=== PATIENT | female | born 1990 | race Caucasian/White ===

== ENCOUNTER 2025-05-07 22:36 | Inpatient (IN) | payer MEDICAID, OTHER, SELFPAY ==
[2025-05-07 23:22] VITALS: BMI 34.7
[2025-05-07 23:24] VITALS: BP 110/56; PULSE 86; RESP 18; TEMP 36.5; O2SAT 97
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
[2025-05-08 07:00] VITALS: BMI 34.6
[2025-05-08 07:34] VITALS: BP 131/90; PULSE 75; RESP 18; TEMP 36.4; O2SAT 100
--- NOTE | 2025-05-08 07:59 | HO.PM.IMCN ---
History of Present Illness Data of Consult Service Date: 05/08/25 Requesting physician: Jelena Beltre Primary Care Provider: Unknown Physician HPI Reason for consult: New admission H&P A 35-year-old [place]ese and Turkish speaking female who was admitted from [facility] due to increasing agitation and violent behavior. The hospitalist service was asked to evaluate the patient for a new admission H&P. Patient was calm and cooperative throughout evaluation. She reports a history of bronchitis but does not use any inhalers, she also reports prediabetes and was previously taking her friend's metformin. 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 Review of Systems Review of Systems: Yes all other systems are reviewed and are negative Constitutional: Constitutional: Denies fever(s) Cardiovascular: Cardiovascular: Denies chest pain and Denies dyspnea Respiratory: Respiratory: Denies cough and Denies dyspnea Gastrointestinal: Gastrointestinal: Denies abdominal pain [facility] Social History Household Members: Other Household Members Other:: 3 male roomates Housing: Apartment Patient Tobacco Use Status: Never used Tobacco Advance Directives: No Advance Directives Information Provided: No Recently lost weight without trying: No Patient : No : No Poor oral hygiene: No Meds Allergies Allergy/AdvReac Type Severity Reaction Status Date / Time No Known Allergies Allergy Verified 05/07/25 23:16 Active Medications: Current Medications Acetaminophen (Acetaminophen 325 Mg Tablet) 650 mg PO Q6H PRN PRN Reason: Headache/Pain, Scale 1-10 Last Admin: 05/08/25 04:57 Dose: 650 mg Al Hydroxide/Mg Hydroxide (Magnesium Hydrox/Alum Hydrox 30 Ml Oral.Susp) 30 ml PO Q6H PRN PRN Reason: Heartburn/Nausea Hydroxyzine HCl (Hydroxyzine Hcl 25 Mg Tablet) 25 mg PO Q6H PRN PRN Reason: mild anxiety Magnesium Hydroxide (Milk Of Magnesia 30 Ml Oral.Susp) 30 ml PO DAILY PRN PRN Reason: Constipation Nicotine Polacrilex (Nicotine Polacrilex 2 Mg Gum) 4 mg BUCCAL Q2H PRN PRN Reason: Nicotine Cravings Trazodone HCl (Trazodone Hcl 50 Mg Tablet) 50 mg PO BEDTIME MRX1 PRN PRN Reason: Insomnia Home Medications ?Medication ?Instructions ?Recorded ?Confirmed ?Last Taken ?Type alprazolam 0.25 mg tablet 0.25 mg PO BEDTIME PRN Anxiety 05/08/25 05/08/25 Unknown History paliperidone palmitate 117 mg/0.75 117 mg IM QMONTH 05/08/25 05/08/25 Unknown History mL intramuscular syringe (Invega Sustenna) Physical Exam Vital Signs and Narrative: Vital Signs: Last Vital Signs Temp 97.5 F 05/08/25 07:34 Pulse 75 05/08/25 07:34 Resp 18 05/08/25 07:34 BP 131/90 H 05/08/25 07:34 Pulse Ox 100 05/08/25 07:34 O2 Del Method Room Air 05/08/25 07:34 BMI result Body Mass Index 34.7 Const: General: cooperative, comfortable, no acute distress, alert and awake Nutritional Appearance: average body habitus Orientation/consciousness: patient oriented x3 Resp: Effort & Inspection: normal respiratory effort, able to speak in complete sentences, no respiratory distress and no use of accessory muscles Auscultation: clear to auscultation bilaterally Cardio: Rate: regular rate GI: Inspection: No distended Neuro: General: patient oriented x3, moves all extremities and CN's II-XI intact bilaterally Extrem: Other: right knee no appreciable joint effusion/joint line tenderness,tenderness to palpation; full ROM Assessment and Plan (1) Pre-diabetes: Status: Acute This is a 35-year-old [place]ese and Turkish speaking female with history of schizoaffective disorder who was admitted from [facility] due to increasing agitation and violent behavior Possible Prediabetes hba1c 5.6. no pre-diabetes. no need to follow blood sugar no metformin on medication list (says she was taking her friends) patient may have diabetic diet if she prefers outpatient follow up with PCP Chronic joint pain Patient reports she uses Motrin There are no acute medical issues at this time. Thank you for allowing us to participate in the care of this patient.
[2025-05-08 08:06] LABS: Hemoglobin A1C 97.8799 umol/L; Total Hemoglobin (HGBA1C) 2580.3830 umol/L
[2025-05-08 08:19] LABS: Cholesterol 119 mg/dL (<200); HDL Cholesterol 45 mg/dL (>40); Magnesium 1.8 mg/dL (1.6-2.6); Triglycerides 91 mg/dL (<150)
[2025-05-08 08:37] LABS: Free T4 (Free Thyroxine) 1.03 ng/dL (0.71-1.85); Thyroid Stimulating Hormone 1.69 uIU/mL (0.32-4.0)
[2025-05-08 08:50] LABS: Folate 8.0 ng/mL (> or = 4.0); Vitamin B12 552 pg/mL (200-900)
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
[2025-05-08 14:11] LABS: Glucose, Whole Blood 189 mg/dL (60-115)
== END 2025-05-08 15:05 | disposition home or self-care (01) | DRG 753 ==
PROVIDERS: Clinical Nurse Specialist Psychiatric/Mental Health, Adult; Admitting Provider Psychiatry & Neurology Psychiatry; Visit Provider Psychiatry & Neurology Psychiatry
DX: F31.9 Bipolar disorder, unspecified (principal); F43.10 Post-traumatic stress disorder, unspecified; R73.03 Prediabetes; Z79.899 Other long term (current) drug therapy
CPT/HCPCS: 36415; 80061; 82607; 82746; 82947; 83036; 83735; 84439; 84443; J2426

== ENCOUNTER → 2025-05-07 22:36 | Outpatient (BNV) | payer MEDICAID, SELFPAY | PROVIDERS: Admitting Provider Psychiatry & Neurology Psychiatry; Visit Provider Physician Assistant Medical | DX: R73.03 Prediabetes (principal) | CPT/HCPCS: 99223 ==

== ENCOUNTER → 2025-05-07 22:36 | Outpatient (BNV) | payer MEDICAID, SELFPAY | PROVIDERS: Admitting Provider Psychiatry & Neurology Psychiatry; Visit Provider Registered Nurse | DX: F31.9 Bipolar disorder, unspecified (principal); F43.10 Post-traumatic stress disorder, unspecified; R73.03 Prediabetes | CPT/HCPCS: 90792; 99499 ==